=== PATIENT | male | born 1990 | race American Indian/Alaskan Native ===

== ENCOUNTER 2019-06-12 22:34 | Emergency (ER) | payer OTHER ==
[2019-06-12 22:41] VITALS: BP 108/69
[2019-06-12] MEDS ORDERED: BUTALB/ACETAMINOPHEN/CAFFEINE TAB PO ONE (23:55)
[2019-06-12] MEDS ORDERED: SODIUM CHLORIDE 0.9% 1000 ML 1,000 ML IV ONE (23:55)
--- NOTE | 2019-06-12 23:56 | Emergency Department Report ---
ED General Adult HPI - General Chief complaint: Headache Stated complaint: HEADACHES, CHILLS Time Seen by Provider: 06/12/19 22:46 Source: patient Mode of arrival: Ambulatory Limitations: No Limitations - History of Present Illness Initial comments: The patient presents to the emergency department with a chief complaint of fevers and chills for the last 2 days. Patient also complains of a headache that has been present for the last 2 days as well but he states that he has a history of tension headaches and this feels very similar to his prior headaches and is not the worse headache of his life. Patient denies any recent sick contacts. Patient also complains of nasal congestion and a nonproductive cough. -: Sudden Severity scale (0 -10): 2 Consistency: constant Improves with: none Worsens with: none Associated Symptoms: denies other symptoms Treatments Prior to Arrival: none - Related Data Previous Rx's Medication Instructions Recorded Last Taken Type ALBUTEROL Inhaler (OR & NICU) 2 puff IH Q4HR PRN #1 inhalation 06/13/19 Unknown Rx [ProAir HFA Inhaler] Butalb/Acetamin/Caff 50-325-40 1 tab PO Q6HR PRN #24 tab 06/13/19 Unknown Rx [Fioricet] Naproxen [Naprosyn] 500 mg PO BID PRN #20 tablet 06/13/19 Unknown Rx Allergies Allergy/AdvReac Type Severity Reaction Status Date / Time No Known Allergies Allergy Unverified 06/12/19 22:40 ED Review of Systems ROS: Stated complaint: HEADACHES, CHILLS Other details as noted in HPI Constitutional: denies: chills, fever Eyes: denies: eye pain, eye discharge, vision change ENT: denies: ear pain, throat pain Respiratory: denies: cough, shortness of breath, wheezing Cardiovascular: denies: chest pain, palpitations Endocrine: no symptoms reported Gastrointestinal: denies: abdominal pain, nausea, diarrhea Genitourinary: denies: urgency, dysuria Musculoskeletal: denies: back pain, joint swelling, arthralgia Skin: denies: rash, lesions Neurological: denies: headache, weakness, paresthesias Psychiatric: denies: anxiety, depression Hematological/Lymphatic: denies: easy bleeding, easy bruising ED Past Medical Hx - Past Medical History Previous Medical History?: No - Surgical History Past Surgical History?: Yes Additional Surgical History: Left wrist - Social History Smoking Status: Never Smoker Substance Use Type: None - Medications Home Medications: Home Medications Medication Instructions Recorded Confirmed Last Taken Type ALBUTEROL Inhaler (OR & NICU) 2 puff IH Q4HR PRN #1 inhalation 06/13/19 Unknown Rx [ProAir HFA Inhaler] Butalb/Acetamin/Caff 50-325-40 1 tab PO Q6HR PRN #24 tab 06/13/19 Unknown Rx [Fioricet] Naproxen [Naprosyn] 500 mg PO BID PRN #20 tablet 06/13/19 Unknown Rx ED Physical Exam - General Limitations: No Limitations General appearance: alert, in no apparent distress - Head Head exam: Present: atraumatic, normocephalic - Eye Eye exam: Present: normal appearance - ENT ENT exam: Present: mucous membranes dry - Neck Neck exam: Present: normal inspection, full ROM, other (no meningeal signs on exam, no nuchal rigidity) - Respiratory Respiratory exam: Present: normal lung sounds bilaterally. Absent: respiratory distress - Cardiovascular Cardiovascular Exam: Present: regular rate, normal rhythm. Absent: systolic murmur, diastolic murmur, rubs, gallop - GI/Abdominal GI/Abdominal exam: Present: soft, normal bowel sounds - Rectal Rectal exam: Present: deferred - Extremities Exam Extremities exam: Present: normal inspection - Back Exam Back exam: Present: normal inspection - Neurological Exam Neurological exam: Present: alert, oriented X3 - Psychiatric Psychiatric exam: Present: normal affect, normal mood - Skin Skin exam: Present: warm, dry, intact, normal color. Absent: rash ED Course Vital Signs 06/12/19 06/13/19 22:39 00:25 Temperature 99.2 F Pulse Rate 81 Respiratory 18 18 Rate Blood Pressure 108/69 O2 Sat by Pulse 99 Oximetry ED Medical Decision Making - Lab Data Result diagrams: 06/13/19 00:02 06/13/19 00:02 Lab Results 06/13/19 06/13/19 Range/Units 00:02 00:02 WBC 4.3 L (4.5-11.0) K/mm3 RBC 5.22 H (3.65-5.03) M/mm3 Hgb 14.5 (11.8-15.2) gm/dl Hct 41.9 (35.5-45.6) % MCV 80 L (84-94) fl MCH 28 (28-32) pg MCHC 35 H (32-34) % RDW 14.0 (13.2-15.2) % Plt Count 222 (140-440) K/mm3 Lymph % (Auto) 26.2 (13.4-35.0) % Dickenson % (Auto) 5.7 (0.0-7.3) % Eos % (Auto) 0.4 (0.0-4.3) % Baso % (Auto) 0.4 (0.0-1.8) % Lymph # 1.1 L (1.2-5.4) K/mm3 Dickenson # 0.2 (0.0-0.8) K/mm3 Eos # 0.0 (0.0-0.4) K/mm3 Baso # 0.0 (0.0-0.1) K/mm3 Seg Neutrophils % 67.3 (40.0-70.0) % Seg Neutrophils # 2.9 (1.8-7.7) K/mm3 Sodium 138 (137-145) mmol/L Potassium 4.7 (3.6-5.0) mmol/L Chloride 99.7 (98-107) mmol/L Carbon Dioxide 26 (22-30) mmol/L Anion Gap 17 mmol/L BUN 8 L (9-20) mg/dL Creatinine 1.1 (0.8-1.5) mg/dL Estimated GFR > 60 ml/min BUN/Creatinine Ratio 7 % Glucose 97 (75-100) mg/dL Calcium 9.0 (8.4-10.2) mg/dL - Medical Decision Making The patient states his symptoms improved after IV fluids of present Critical care attestation.: If time is entered above; I have spent that time in minutes in the direct care of this critically ill patient, excluding procedure time. ED Disposition Clinical Impression: Headache, Fever, Myalgia, Viral illness Disposition: TO HOME OR SELFCARE Is pt being admited?: No Does the pt Need Aspirin: No Condition: Stable Instructions: Acute Headache (ED), Fever in Adults (ED), Viral Syndrome (ED) Additional Instructions: return if worse Referrals: [place] DEO,TIMOTHY TORRES [Other] - 3-5 Days Time of Disposition: 01:24
[2019-06-13 00:35] LABS: Basophils % (Auto) 0.4 % (0.0-1.8); Eosinophils % (Auto) 0.4 % (0.0-4.3); Hematocrit 41.9 % (35.5-45.6); Hemoglobin 14.5 gm/dl (11.8-15.2); Lymphocytes # (Auto) 1.1 K/mm3 (1.2-5.4); Lymphocytes % (Auto) 26.2 % (13.4-35.0); Mean Corpuscular HGB Conc 35 % (32-34); Mean Corpuscular Volume 80 fl (84-94); Monocytes # (Auto) 0.2 K/mm3 (0.0-0.8); Monocytes % (Auto) 5.7 % (0.0-7.3); Platelet Count 222 K/mm3 (140-440); Red Blood Count 5.22 M/mm3 (3.65-5.03)
[2019-06-13 01:02] LABS: BUN/Creatinine Ratio 7; Blood Urea Nitrogen 8 mg/dL (9-20); Hemolysis Index 12
== END 2019-06-13 01:30 | disposition home or self-care (01) ==
LOC: ED 22:34
DX: B34.9 Viral infection, unspecified (principal); M79.10 Myalgia, unspecified site; R51 Headache; R50.9 Fever, unspecified; Z79.899 Other long term (current) drug therapy
CPT/HCPCS: 80048; 85025; 99283; J7030